=== PATIENT | male | born 1960 | race Caucasian/White ===

== ENCOUNTER 2019-01-23 17:16 | Emergency (ER) | payer OTHER ==
[2019-01-23 17:23] VITALS: BP 171/89; PULSE 66; TEMP 98; BMI 34.7
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
== END 2019-01-23 18:11 | disposition home or self-care (01) ==
LOC: JERFT 17:16
DX: M54.5 Low back pain (principal); M62.830 Muscle spasm of back; V43.52XA Car driver injured in collision with other type car in traffic accident, initial encounter; Y92.414 Local residential or business street as the place of occurrence of the external cause; Y93.89 Activity, other specified; Y99.8 Other external cause status; I10 Essential (primary) hypertension; E11.9 Type 2 diabetes mellitus without complications; Z79.84 Long term (current) use of oral hypoglycemic drugs
CPT/HCPCS: 72070-TC-FY; 72100-TC-FY; 99281-25

== ENCOUNTER 2019-02-16 04:43 | Day surgery (SDC) | payer OTHER ==
[2019-02-15 11:32] VITALS: BMI 34.7
--- NOTE | 2019-02-15 16:17 | HP ---
Satellite H - Chief Complaint Chief Complaint: left shoulder pain - Past Medical History Allergies/Adverse Reactions: Allergies Allergy/AdvReac Type Severity Reaction Status Date / Time No Known Drug Allergies Allergy Verified 02/16/19 06:32 - Current Medications Current Medications: Home Medications Medication Instructions Recorded Glyburide 10 mg PO BID 07/12/15 Lisinopril [Prinivil] 20 mg PO DAILY 07/12/15 Sitagliptin Phosphate [Januvia] 50 mg PO DAILY 07/12/15 metFORMIN HCL [Metformin HCl] 1,000 mg PO BID 07/12/15 Nebivolol HCl [Bystolic] 20 mg PO BID 02/13/16 Ibuprofen 800 mg PO PRN PRN 02/15/19 Sumatriptan Succinate 100 mg PO HS 02/15/19 Oxycodone HCl/Acetaminophen 1 - 2 tab PO Q6H #30 tab MDD 6 02/16/19 [Percocet 5-325 mg Tablet] Satellite Physical Exam - Physical Examination General Appearance: Well Nourished, Well Developed, Alert & Oriented x3 ENT: Clear Lung: Normal air movement Extremities: Other (left shoulder- + ttp ,decr rom ,+ neer, + collins, + empty can, nvi , MRI + rct) Neurological: Intact, Alert, Oriented Satellite Impression/Plan - Impression/Plan Impression: left shoulder rct Operative Procedure: left shoulder arthroscopy with RCR, SAD Date to be Performed: 02/15/19
[2019-02-16] MEDS ORDERED: ROPIVACAINE HCL 0.5% 30ML VIAL ONE ×2 (07:03→07:10)
[2019-02-16] MEDS ORDERED: DEXAMETHASONE SOD PHOSPHATE/PF 10 MG/ML SDV ONE (07:03)
[2019-02-16] MEDS ORDERED: MIDAZOLAM HCL 2 MG/2 ML SINGLE DOSE VIAL ONE ×2 (07:21)
[2019-02-16] MEDS ORDERED: INSULIN (NOVOLOG) ASPART 100 UNITS/ML 10ML VIAL ONE (07:43)
[2019-02-16] MEDS ORDERED: SUCCINYLCHOLINE CHLORIDE 200 MG/10 ML SYRINGE ONE (07:44)
[2019-02-16] MEDS ORDERED: PROPOFOL 20 ML ONE (07:44)
[2019-02-16] MEDS ORDERED: INSULIN (NOVOLOG) ASPART 100 UNITS/ML 10ML VIAL SQ ONE ×2 (07:52→09:06)
[2019-02-16] MEDS ORDERED: ceFAZolin 2 GRAM PREMIX BAG IVPB ONE (08:10)
[2019-02-16] MEDS ORDERED: oxyCODONE HCL 5 MG TABLET PO PRN ×2 (09:05)
[2019-02-16] MEDS ORDERED: ONDANSETRON 4 MG/2 ML VIAL IVPUSH PRN (09:05)
--- NOTE | 2019-02-16 09:08 | OP ---
Operative Note - Note: Operative Date: 02/16/19 ([facility]) Pre-Operative Diagnosis: left shoulder rct, impingement Operation: left shoulder arthroscopy with ADITYA, REYNALDO Post-Operative Diagnosis: Same as Pre-op Surgeon: Rosas Raphael Multimedia Educational Specialist: Jc Bryson Anesthesiologist/DISH STACKER: Juana Aviles Anesthesia: General, Local Specimens Removed: shavings Estimated Blood Loss (mls): 5
[2019-02-16] MEDS ORDERED: LACTATED RINGERS SOLUTION 1,000 ML IV SCH (09:15)
[2019-02-16 10:55] VITALS: TEMP 97.5
[2019-02-16 12:05] VITALS: BP 153/92; PULSE 70
--- NOTE | 2019-02-16 20:41 | OP ---
DATE OF OPERATION: 02/16/2019 PREOPERATIVE DIAGNOSIS: Left shoulder impingement plus/minus rotator cuff tear. POSTOPERATIVE DIAGNOSIS: Impingement left shoulder with partial rotator cuff tear and degenerative joint disease of the glenohumeral joint. PROCEDURE: 1. Left shoulder arthroscopy with subacromial decompression and debridement. 2. Manipulation under anesthesia. SURGICAL ATTENDING: Rosas Raphael MD ABRASIVE GRINDER: REHAN Neves ANESTHESIA: Regional and general. CLOSURE: 4-0 nylon. COMPLICATIONS: None. CONDITION: To recovery in stable condition. DESCRIPTION OF OPERATIVE PROCEDURE: The patient was taken to the operating room on February 16, 2019. Regional and general anesthesia were administered by the anesthesiologist. IV Kefzol was administered prophylactically prior to the case. The patient was placed in the beach chair position with all prominences well padded. The left shoulder area was prepped and draped in the usual sterile fashion. The posterior portal was made 2 fingerbreadths below the acromion first with a 15-blade and a blunt trocar. Anterior portal was made using a spinal needle through the anterior triangle followed by a 15-blade blunt trochar. Circumferential exam of glenohumeral joint revealed the following: Intact biceps and biceps anchor, intact labrum. Circumferentially, there were grade 4 changes of the glenoid fossa in its anterior, inferior aspect. Some loose articular cartilage in this region was debrided. The humeral head was basically intact, and the loose body was in the axillary pouch. Subscapularis was intact to its insertion. Looking superiorly, the rotator cuff had some fraying, which was debrided using the shaver but was mostly intact throughout. The fluid was drained from the shoulder, and trocars were removed. Posterior trocar was redirected to subacromial space. Accessory lateral portal was made using a 15 blade and followed by a blunt trochar. A large amount of subacromial bursal thickened tissue was encountered; this was debrided using the shaver. Coracoacromial ligament was identified and detached off the anterior acromion, which was visualized to drop inferiorly and was further debrided. Subacromial spur was encountered, and acromioplasty was then performed using the Acromionizer bur, gaining sufficient height in the subacromial space. Working inferiorly, the rotator cuff was found to be intact after extensive amount of debridement of fibrous tissue that was encasing the head was debrided. Manipulation under anesthesia was also performed in order to regain range of motion, all fibrous tissues in the subacromial space was debrided down anteriorly and along the lateral client representative of the humerus as well. Fluid was drained from the shoulder, and the trocars were removed. All the portals were closed using 3-0 nylon, sterile Aquacel dressing followed by a sling was applied. Patient was awakened from anesthesia and transferred to recovery in stable condition. Demetrice ENRIQUE/[id number]
--- NOTE | 2019-02-17 16:38 | PATH ---
Surgical Pathology Report Patient Name: FABIÁN HAWK Med. Rec. #: [id number] /Age/Gender: 1960 (Age: 58) / M Account: [id number] Location: [facility] SURGICAL Taken: 02/16/2019 Received: 02/16/2019 Reported: 02/17/2019 Physicians: Rosas Raphael M.D. Specimen(s) Received LEFT SHOULDER Clinical History Tear impingement syndrome of left shoulder Final Diagnosis SHOULDER SHAVINGS, LEFT, ARTHROSCOPY: FRAGMENTS OF BENIGN CARTILAGE, BONE, DENSE FIBROCONNECTIVE TISSUE, ADIPOSE TISSUE, SYNOVIUM, AND SKELETAL MUSCLE. Electronically Signed Ekaterina Dumas M.D. Gross Description Received in formalin, labeled "left shoulder shavings," is a 4.0 x 3.4 x 0.3 cm. aggregate of bliss-yellow soft tissue fragments. A branch sales and service representative portion is submitted in one cassette. 02/16/2019 saudi02/16/2019
== END 2019-02-16 10:30 | disposition home or self-care (01) ==
LOC: JASU-SURG 04:43
PROVIDERS: ATTEND Orthopaedic Surgery
PROC: 0RNKXZZ Release Left Shoulder Joint, External Approach (ICD-10-PCS; 2019-02-16)
PROC: 0RBK4ZZ Excision of Left Shoulder Joint, Percutaneous Endoscopic Approach (ICD-10-PCS; principal; 2019-02-16 08:00)
DX: M75.42 Impingement syndrome of left shoulder (principal); M75.112 Incomplete rotator cuff tear or rupture of left shoulder, not specified as traumatic; M19.012 Primary osteoarthritis, left shoulder
CPT/HCPCS: 82962; 94760